=== PATIENT | female | born 1990 ===

== ENCOUNTER 2020-01-27 14:54 | Outpatient (REF) | payer MEDICAID, SELFPAY ==
[2020-01-31 03:09] LABS: SARS-CoV-2 RNA Undetected (Undetected); SARS-CoV-2 Specimen Source Nasal
== END 2020-01-27 15:14 ==
LOC: NCHCN 14:54
PROVIDERS: Visit Provider Nurse Practitioner Family
DX: J06.9 Acute upper respiratory infection, unspecified (principal)
CPT/HCPCS: U0003

== ENCOUNTER 2020-04-02 20:52 | Outpatient (REF) | payer MEDICAID, SELFPAY ==
[2020-04-05 14:08] LABS: COVID-19 RT-PCR UVMMC Result Negative (Negative)
== END 2020-04-02 21:12 ==
LOC: NCHCN 20:52
PROVIDERS: Visit Provider Nurse Practitioner Family
DX: R05 Cough (principal)
CPT/HCPCS: U0003

== ENCOUNTER 2022-10-09 21:32 | Outpatient (REF) | payer MEDICAID, SELFPAY ==
[2022-10-09 21:48] LABS: TSH 3.24 uIU/mL (0.36-3.74)
== END 2022-10-09 21:33 | disposition home or self-care (01) ==
LOC: NCHCN 21:32
PROVIDERS: Visit Provider Internal Medicine
DX: N92.5 Other specified irregular menstruation (principal)
CPT/HCPCS: 84443